=== PATIENT | female | born 1995 | race Caucasian/White ===

== ENCOUNTER 2023-01-20 18:53 | Emergency (ER) | payer OTHER ==
[~2023-01-20] VITALS: Ht 167.6 cm; Wt 89.0 kg
[2023-01-20] MEDS ORDERED: NS 1,000 ML IV ONE (20:35)
[2023-01-20 20:55] LABS: BASO # 0.1 10^3/uL (0.0-0.2); BASO % 0.5 % (0.0-1.0); EOS # 0.3 10^3/uL (0.0-0.5); EOS % 2.7 % (0.0-3.0); HEMATOCRIT 41.5 % (36.0-47.0); HEMOGLOBIN 13.7 g/dl (12.0-15.5); LYMPH # 2.2 10^3/uL (1.5-5.0); LYMPH % 23.8 % (24.0-44.0); MEAN CORPUSCULAR HEMOGLOBIN 29.3 pg (27.0-33.0); MEAN CORPUSCULAR VOLUME 88.9 fl (80.0-96.0); MONO # 0.4 10^3/uL (0.0-0.8); MONO % 4.6 % (2.0-8.0); NEUTROPHILS # 6.3 10^3/uL (1.5-8.5); NEUTROPHILS % 68.1 % (36.0-66.0); PLATELET COUNT, AUTOMATED 245 10^3/uL (150-450); RED BLOOD COUNT 4.67 10^6/uL (4.00-5.40); WHITE BLOOD COUNT 9.3 10^3/uL (4.0-10.0)
[2023-01-20] MEDS ORDERED: METOCLOPRAMIDE INJ 10MG/2ML VIAL IV ONE (21:05)
[2023-01-20] MEDS ORDERED: KETOROLAC 30 MG/ML 1ML VIAL IV ONE (21:05)
[2023-01-20 21:26] LABS: CK-MB VALUE MASS < 1.0 NG/ML (<3.6)
[2023-01-20 21:28] LABS: BLOOD UREA NITROGEN 9 MG/DL (9-23); CALCIUM LEVEL 9.2 MG/DL (8.5-10.1); CARBON DIOXIDE LEVEL 28 MMOL/L (20-31); CHLORIDE LEVEL 107 MMOL/L (98-107); CPK CREATINE PHOSPHOKINASE 65 U/L (34-145); CREATININE FOR GFR 0.76 MG/DL (0.55-1.30); GLOMERULAR FILTRATION RATE > 60.0 (>60); GLUCOSE, FASTING 87 MG/DL (60-100); MB/CK RELATIVE INDEX 1.53 (< OR =4); SODIUM LEVEL 139 MMOL/L (136-145)
[2023-01-20 21:31] LABS: HCG, SERUM QUALITATIVE NEGATIVE (NEGATIVE)
[2023-01-20] MEDS ORDERED: ISOVUE-370 76% 100ML VIAL As Ordered ONE (21:32)
[2023-01-20 22:37] VITALS: BP 102/65
== END 2023-01-20 22:40 | disposition home or self-care (01) ==
LOC: M ED 18:53
DX: R55 Syncope and collapse (principal); F32.9 Major depressive disorder, single episode, unspecified; F90.9 Attention-deficit hyperactivity disorder, unspecified type; G43.909 Migraine, unspecified, not intractable, without status migrainosus; Z88.0 Allergy status to penicillin; Z88.8 Allergy status to other drugs, medicaments and biological substances
CPT/HCPCS: 70450; 71275; 80048; 82550; 82553; 83735; 84484; 84703; 85025; 93005; 96374; 96375; 99284; J1885; J2765; Q9967